=== PATIENT | male | born 2000 | race Caucasian/White ===

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

== ENCOUNTER 2021-11-04 17:55 | Emergency (ER) | payer OTHER ==
--- OUTSIDE RECORDS SUMMARY | 2021-11-04 17:58 | XMS REPORT | Continuity of Care Document ---
:2000 Author Organization [facility] t Address [facility] [address] [place] [address] Care Team Providers Name Role Phone PCP, DOES NOT HAVE A Primary Care Physician Unavailable Samir Goldberg Attending Clinician Samir CHAVIS Attending Clinician Unavailable Samir CHAVIS Admitting Clinician Unavailable Payers Payer Name Policy Type Policy Number Effective Date Expiration Date S ource Advance Directives Directive Decision Effective Termination Comments Source Date Date Healthcare Agents on N/A Univ ersity FileNameRelationshipHealthcare [place] [facility] Agent Medical RelationshipCommunicationSfloating hospital for children Branch [employer] PageMotherPrimary healthcare [phone] (Mobile) [email or web address] PageStep ParentFirst alternate healthcare -[phone] (Mobile) Problems Condition Condition Condition Status Onset Resolution Last Treating Co mments Source Name Details Category Date Date Treatment Clinician Date No known No known Disease Unive rs active active ity of problems problems [facility] Allergies, Adverse Reactions, Alerts Allergy Allergy Status Severity Reaction(s) Onset Inactive Treating Comm ents Source Name Type Date Date Clinician Sulfa Propensi Active Unknown - Unive rs (Sulfona ty to See comments 1-25 it y of mide adverse 00:00: [place] Antibiot reaction 00 Medica l ics) s Branch SULFA Drug Active Unknown-Cmnt Univ ers (SULFONA Class 1-25 ity of MIDE 00:00: [place] ANTIBIOT 00 Medical ICS) Branch Social History Social Habit Start Date Stop Date Quantity Comments Source Sex Assigned At Uni versity [facility] Smoking Status Start Date Stop Date Source Unknown if ever smoked Universit y [facility] Medications Ordered Filled Start Stop Current Ordering Indication Dosage Frequency Signature Comments Components Source Medication Medication Date Date Medication? Clinician (SIG) Name Name ibuprofen 2020-0 2020- No 800mg 800 mg, Uni vers (IBU) 09-19 Oral, ity of tablet 800 06:15: 05:26 ONCE, 1 Ed as mg 00 :00 dose, Tue Medical 09/19/19 at [place] 0015, MARIYA NaCl 0.9% 0 2020- No 1000mL at 999 Uni vers (NS) bolus 09-19 mL/hr, ity of infusion 05:30: 06:00 1,000 mL, Ed as 1,000 mL 00 :00 IV Medical Infusion, [place] ONCE, 1 dose, [facility] 09/18/19 at 2330, MARIYA acetaminoph 2019- 2020- No 1000mg 1,000 mg, Univers en 09-19 Oral, ity of (TYLENOL) 05:00: 03:55 [place]CE[place] tablet [place] :[place] dose, [facility] Medical 1,000 mg 09/18/19 at [facility] h 2300, MARIYA iohexol 2019-0 2020- No 120mL 120 mL, Univ rs (OMNIPAQUE 09-19 Intravenou it y of 350 02:30: 02:15 s, ONCE, 1 [place] BULK-150 00 :00 dose, Mon Medica l mL) 09/18/19 at [place] injection 2030, 120 mL Routine proMETHazin 2019-0 2020- No 25mg 25 mg, IV Univers e 09-19 Piggyback, ity of (PHENERGAN) 02:15: 02:15 [place] 1 [place] 00 :00 dose, Mon Medica l NaCl 0.9% 09/18/19 at [facility] (NS) 50 mL 2014, 50 piggyback mL morpHINE 2019-0 2020- No 4mg 4 mg, Slow Un meaghan injection 4 09-19 IV Push, ity of mg 02:15: 01:29 ONCE, 1 [place] 00 :00 dose, Mon Medical 09/18/19 at Branch 2015, STAT NaCl 0.9% 2020-0 2020- No 2000mL at 999 Uni vers (NS) bolus 2-11 02-11 mL/hr, ity of infusion 01:00: 05:26 2,000 mL, Ed as 2,000 mL 00 :00 IV Medical Infusion, Branch ONCE, 1 dose, 09/18/19 at 1900, MARIYA ondansetron 2020-0 Yes [id number] 4mg Take 1 Univers 4 mg 2-11 tablet by ity of disintegrat 00:00: mouth [place] ing tablet 00 every 12 Medic al (twelve) Branch hours as needed for Nausea and Vomiting (N/V). dicyclomine 2020-0 Yes [id number] 10mg Take 1 Univers (BENTYL) 10 2-11 capsule by it y of mg capsule 00:00: mouth 4 [place] 00 (four) Medical times Branch daily as needed for Abdominal pain. lisdexamfet 2019-0 Yes 40mg Take 40 mg Univers amine 1-19 by mouth ity of (VYVANSE) 00:52: every [place] 40 mg 41 morning. Medical capsule Branch SERTraline 2019-0 Yes 100mg Take 100 Un meaghan (ZOLOFT) 1-19 mg by ity of 100 mg 00:18: mouth [place] tablet 17 daily. Medical Branch esomeprazol 2019-0 Yes 40mg Take 40 mg Univers e magnesium 1-19 by mouth ity of (NEXIUM 00:18: daily. [place] ORAL) 17 Medical Branch cyclobenzap 2019-0 Yes [id number] 5mg Take 1 Univers rine 5 mg 1-18 tablet by ity o f tablet 00:00: mouth 3 [place] 00 (three) Medical times Branch daily. traMADOL 2019-0 Yes [id number] 50mg Take 1 Un meaghan (ULTRAM) 50 1-18 tablet by ity of mg tablet 00:00: mouth [place] 00 every 6 Medical (six) Branch hours as needed for Pain (scale 4-6). benzonatate 2018-0 Yes 100mg Take 1 Uni vers 100 mg 4-06 capsule by ity of capsule 00:00: mouth 3 [place] 00 (three) Medical times Branch daily as needed for Cough. naproxen 2018-0 Yes 500mg Take 1 Univer s (NAPROSYN) 3-27 tablet by ity of 500 mg 00:00: mouth 2 [place] tablet 00 (two) Medical times Branch daily with meals. FLAGYL 250 2016- Yes 250mg Take 1 Univ ers mg tablet 1-08 tablet by ity o f 00:00: mouth [place] 00 every 8 Medical (eight) Branch hours. ibuprofen 2015-0 Yes 600mg Take 1 Tab U nivers (MOTRIN) 1-25 by mouth 3 ity o f 600 mg 00:00: (three) [place] tablet 00 times Medical daily with Branch meals. Vital Signs Vital Name Observation Time Observation Value Comments Source Systolic blood 2019-09-19 06:30:00 154 mm[Hg] Univer sity [facility] Diastolic blood 2019-09-19 06:30:00 69 mm[facility]Hg] [facility] Heart rate 2019-09-19 06:30:00 106 /min [facility] Body temperature 2019-09-19 06:00:00 37.5 [place] [facility] Oxygen saturation in 2019-09-19 06:00:00 96 /min [facility] Arterial blood by [facility] Pulse oximetry Branch Respiratory rate 2019-09-19 05:00:00 20 /min [facility] Body weight 2019-09-19 00:45:00 122.471 kg [facility] Procedures Procedure Date / Time Performing Clinician Source Performed ADC,CLC OR LCC ONLY - 2019-09-19 03:57:00 Everett Chavis [facility] INFLUENZA A & B DIRECT Medical B [place] ANTIGEN URINALYSIS 2019-09-19 03:36:00 Everett Chavis [facility] CT ABDOMEN PELVIS W 2019-09-19 02:17:36 Everett Chavis [facility] CONTRAST [facility] LACTIC ACID WHOLE BLOOD 2019-09-19 01:24:00 [facility] 2019-09-19 01:23:00 Everett Chavis [facility] COMP. METABOLIC PANEL 2019-09-19 01:23:00 Everett Chavis [facility] ([id number]) [facility] Center [facility] CBC WITH DIFFERENTIAL 2019-09-19 01:23:00 Everett Chavis [facility] NOTICE OF PRIVACY 2019-09-19 00:23:33 [facility] Branch CONSENT/REFUSAL FOR 2019-09-19 00:23:10 Doctor Unassigned, No [facility] Name [facility] Clinic Encounters Start End Encounter Admission Attending Care Care Encounter Source Date/Time Date/Time Type Type Clinicians Facility Department ID 2019-09-18 2019-09-19 Emergency Mcrae [place], [facility] [id number] Univers 18:48:11 01:08:00 Everett Olson [id number] [facility] [id number] [facility] [id number] Medi david 084 Branch 2019-09-18 2019-09-19 Emergency X PARTHA, [facility] ERT [id number] Univers 18:48:11 01:08:00 EVERETT christine [facility] Results Test Description Test Time Test Comments Results Result Comments Source ADC,CLC OR LCC ONLY - INFLUENZA A & B DIRECT ANTIGEN 2019-09 04:41:00 Test Item Value Reference Range Interpretation Comme nts Influenza A (test code = 31710-5) Negative Negative Influenza B (test code = 89485-7) Negative Negative Lab Interpretation (test code = 79073-5) Normal [facility] 04:17:00 Test Item Value Reference Range Interpretation Comments APPEARANCE (test code = Clear Clear 8258468959) COLOR (test code = Yellow Yellow 9251939215) PH (test code = 4.8-8.0 7363975432) SP GRAVITY (test code = 1.003-1.030 H 1896108565) GLU U QUAL (test code = Normal Normal 5360610050) BLOOD (test code = Negative Negative 8383407295) KETONES (test code = Negative Negative 2170958949) PROTEIN (test code = Negative Negative 2887-8) UROBILIN (test code = Normal Normal 8985690651) BILIRUBIN (test code = Negative Negative 4984030972) NITRITE (test code = Negative Negative 6494149857) LEUK MICHAEL (test code = Negative Negative 5372078348) RBC/HPF (test code = See_Comment [Autom ated message] 3355215455) The system Trud[employer] generated this result transmitted ref erence range: 0 - 3 HP F. The reference range was not used to int erpret this result as normal/abnormal . WBC/HPF (test code = <1 See_Comment [Autom ated message] 0943927315) The system [employer] generated this result transmitted ref erence range: 0 - 5 HP F. The reference range was not used to int erpret this result as normal/abnormal . BACTERIA (test code = Negative Negative 9194881993) Lab Interpretation (test Abnormal code = 80119-0) [facility] W [id number] 03:42:19 1. There are multiple scattered prominent mesenteric lymph nodes. This isnonspecific but may be related to mesenteric adenitis.2. Otherwise no acute findings RL: 4500 End of report ORDERING CLINICIAN: EVERETT CHAVIS TECHNIQUE: Multidetector helical scanning of the abdomen and pelvis wasperformed after the administration of IV contrast. Coronal and sagittalreformations were obtained. CT scan was performed according to the ALARA (as low as reasonablyachievable) principal. INDICATION:Abdominal pain COMPARISON:None DISCUSSION:There is noevidence of active colonic or small bowel inflammation orobstruction. ?The appendix is well- seen andis normal. There are multiple prominent mesenteric lymph nodes, this is nonspecificbut may representmesenteric adenitis. The lung bases are clear. The liver, adrenal glands, gallbladder, spleen,pancreas, kidneys and stomach are unremarkable in their CT appearance. The pelvic organs are unremarkable. There is no pelvic mass or free fluid. The abdominal and pelvic vasculature is normal. There are no acute or suspicious osseous abnormalities. ? [facility], Radiant Results Inft User - 09/18/2019 9:43 PM CSTORDERING CLINICIAN: EVERETT CHAVISTECHNIQUE: Multidetector helical scanning of the abdomen and pelvis wasperformed after the administration of IV contrast. Coronal and sagittalreformations were obtained.CT scan was performed according to the ALARA (as low as reasonablyachievable) principal.INDICATION:Abdominal painCOMPARISON:NoneDISCUSSION:There is no evidence of active colonic or small bowel inflammation orobstruction. The appendix is well-seen and is normal.There are multiple prominent mesentericlymph nodes, this is nonspecificbut may represent mesenteric adenitis.The lung bases are clear. The liver, adrenal glands, gallbladder, spleen,pancreas, kidneys and stomach are unremarkable in their CTappearance.The pelvic organs are unremarkable. There is no pelvic mass or free fluid.The abdominal and pelvic vasculature is normal.There are no acute or suspicious osseous abnormalities. IMPRESSION1.There are multiple scattered prominent mesenteric lymph nodes. This isnonspecific but may be relatedto mesenteric adenitis.2. Otherwise no acute findingsRL: 4500End [facility] 2019-09-19 02:32:00 Test Item Value Reference Range Interpretation Comments WBC (test code = See_Comment H [Automated 7690-2) message] The system which generated this result transmit yamileth reference range : 4.50 - 13.50 10*3/?L. The reference range was not used to interpret this result as normal/abnormal . RBC (test code = See_Comment H [Automated 789-8) message] The system which generated this result transmit yamileth reference range : 4.50 - 5.30 10*6/?L. The reference range was not used to interpret this result as normal/abnormal . HGB (test code = 15.2 g/dL 13-16 718-7) HCT (test code = 45.9 % 37-49 4544-3) MCV (test code = 84.2 fL 78-95 787-2) MCH (test code = 27.9 pg 26-32 785-6) MCHC (test code = 33.1 g/dL 32-36 786-4) RDW-SD (test code = 35.9 fL 38.5-49 L 95084-4) RDW-CV (test code = 11.9 % 11.5-14 788-0) PLT (test code = See_Comment [Automated 777-3) message] The system which generated this result transmit yamileth reference range : 133 - 320 10*3/ ?L. The reference range was not u sed to interpret th is result as normal/abnormal . MPV (test code = 11.4 fL 9.3-12.9 81424-6) NRBC/100 WBC (test See_Comment [Automat ed code = 0362038095) message] The system which generated this result transmit yamileth reference range : 0.0 - 10.0 /100 WBCs. The reference range was not used to interpret this result as normal/abnormal . NRBC x10^3 (test code <0.01 See_Comment [Auto mated = 7928424945) message] The system which generated this result transmit yamileth reference range : 10*3/?L. The reference range was not used to interpret this result as normal/abnormal . GRAN MAT (NEUT) % 91.8 % (test code = 770-8) IMM GRAN % (test code 0.40 % = 8655359646) LYMPH % (test code = 3.7 % 736-9) MONO % (test code = 3.8 % 5905-5) EOS % (test code = 0.1 % 713-8) BASO % (test code = 0.2 % 706-2) GRAN MAT x10^3(ANC) 15.25 10*3/uL 1.5-10.3 H (test code = 0132714856) IMM GRAN x10^3 (test 0.07 10*3/uL 0-0.06 H code = 1748871466) LYMPH x10^3 (test code 0.61 10*3/uL 0.7-7.4 L = 731-0) MONO x10^3 (test code 0.63 10*3/uL 0-0.5 H = 742-7) EOS x10^3 (test code = <0.03 0-0.4 711-2) BASO x10^3 (test code 0.04 10*3/uL 0-0.1 = 704-7) Lab Interpretation Abnormal (test code = 30522-9) [facility] ([id number])2019-09-19 01:59:00 Test Item Value Reference Range Interpretation Comments NA (test code = 139 mmol/L 135-145 9906496762) K (test code = 4.1 mmol/L 3.5-5 6550313262) CL (test code = 102 mmol/L 98-108 1459919239) CO2 TOTAL (test code = 25 mmol/L 23-31 1420082442) AGAP (test code = 2-16 8640504879) BUN (test code = 13 mg/dL 7-23 9018862691) GLUCOSE (test code = 101 mg/dL 70-110 6836137921) CREATININE (test code = 0.99 mg/dL 0.6-1.25 4783073410) TOTAL BILI (test code = 0.6 mg/dL 0.1-1.3 6372268797) CALCIUM (test code = 9.9 mg/dL 8.6-10.6 3737000560) T PROTEIN (test code = 8.3 g/dL 6.3-8.2 H 9206277464) ALBUMIN (test code = 5.0 g/dL 3.5-5 0234153679) ALK PHOS (test code = 93 U/L 34-122 9076995175) ALTv (test code = 28 U/L 5-50 2-6) AST(SGOT) (test code = 31 U/L 13-40 3640045701) eGFR Calculation mL/min/1.73m2 (Non-) (test code = 5400635306) eGFR Calculation mL/min/1.73m2 () (test code = 6297167575) GUTIERREZ (test code = GUTIERREZ) Association of Glomerular Filtration Rate (GFR) and Staging of Kidney Disease* + --+ --+ ------+| GFR (mL/min/1.73 m2) ?| With Kidney Damage ?| ?Without Kidney Damage+ --------+ --------+ +| ?>90 ?| ?Stage one ?| ? Normal ?+ ---+ ---+ -------+| ?60-89 ?| ?Stage two ?| ? Decreased GFR ? + --+ --+ ------+| ?30-59 ?| ?Stage three ?| ? Stage three ? + --+ --+ ------+| ?15-29 ?| ?Stage four ? | ? Stage four ?+ ---+ ---+ -------+| ?<15 (or dialysis) ? ?| ?Stage five ? | ? Stage five ?+ ---+ ---+ -------+ *Each stage assumes the associated GFR level has been in effect for at least three months. ?Stages 1 to 5, with or without kidney disease, indicate chronic kidney disease. Notes: Determination of stages one and two (with eGFR >59mL/min/1.73 m2) requires estimation of kidney damage for at least three months as defined by structural or functional abnormalities of the kidney, manifested by either:Pathological abnormalities or Markers of kidney damage (including abnormalities in the composition of the blood or urine or abnormalities in imaging tests). Lab Interpretation Abnormal (test code = 32603-7) [facility] [id number] 01:59:00 Test Item Value Reference Range Interpretation Comments LIPASE (test code = 1500641222) 69 U/L 0-220 Lab Interpretation (test code = Normal 24001-9) [facility] NorthwestL[facility] Acid Whole [id number] 01:39:00 Test Item Value Reference Range Interpretation Comments LACTIC ACID (test code = 1.81 mmol/L 0.5-2.2 7966420618) Lab Interpretation (test code = Normal 75614-7) [facility]"
[2021-11-04 20:53] LABS: Absolute Lymphocytes (CBC) 1.4 K/uL (0.7-4.9); Lymphocytes % 11.2 % (15.3-44.8); MPV 8.8 fL (7.6-11.3); RBC Red Blood Cell Count 4.98 M/uL (4.33-5.43)
[2021-11-04] MEDS ORDERED: ONDANSETRON 4 MG/2 ML VIAL ONE (20:59)
[2021-11-04] MEDS ORDERED: FAMOTIDINE 20 MG/2 ML VIAL IV ONE (21:00)
[2021-11-04] MEDS ORDERED: NA CHLORIDE 0.9% 1,000 ML ONE (21:00)
[2021-11-04 21:10] LABS: Bilirubin Total 0.7 mg/dL (0.2-1.0); Potassium 3.7 mmol/L (3.5-5.1); Protein, Total 7.9 g/dL (6.4-8.2)
--- NOTE | 2021-11-04 21:13 | RAD REPORT ---
EXAM DESCRIPTION: CTAbdomen Pelvis W Contrast - 11/04/2021 9:01 pm CLINICAL HISTORY: Abdominal pain. ABD PAIN COMPARISON: Abdomen Exam Limited dated 11/04/2021 TECHNIQUE: Biphasic CT imaging of the abdomen and pelvis was performed with 100 ml non-ionic IV cont rast. All CT scans are performed using dose optimization technique as appropriate and may include automated exposure control or mA/KV adjustment according to patient size. FINDINGS: The lung bases are clear. The liver, spleen, pancreas, adrenal glands and kidneys are within normal limits. No bowel obstruction, free air, free fluid or abscess. The appendix is normal. No evidence of signi ficant lymphadenopathy. No suspicious bony findings. IMPRESSION: No acute intra-abdominal or pelvic finding.
--- NOTE | 2021-11-04 21:29 | RAD REPORT ---
EXAM DESCRIPTION: US - Abdomen Exam Limited - 11/04/2021 9:21 pm CLINICAL HISTORY: ABD PAIN COMPARISON: <Comparisons> FINDINGS: The gallbladder demonstrates no gallstones. No pericholecystic fluid or gallbladder wall t hickening. The common bile duct is normal measuring 4 mm. The liver demonstrates no findings of intrahepatic biliary dilatation. IMPRESSION: Unremarkable examination.
[2021-11-04 21:38] LABS: Urine Blood Negative (Negative); Urine Glucose Negative (Negative); Urine Protein Negative (Negative); Urine Specific Gravity 1.025 (1.005-1.030); Urine pH 6.5 (5.0-7.0)
--- NOTE | 2021-11-04 21:43 | ER ---
Nurse's Notes [facility] Name: Jay Whiteside Age: 21 yrs Sex: Male : 2000 Arrival Date: 11/04/2021 Time: 17:55 Bed 14 Private MD: Diagnosis: Epigastric abdominal tenderness;Abdominal pain, unspecified;Elevated white blood cell count Presentation: 11/04 18:13 Chief complaint: Patient states: FEVER, NAUSEA AND VOMITING TODAY. SEEN AT CLINIC bp EARLIER, -COVID AND FLU. TMAX 100.6. Coronavirus screen: fever, nausea, vomiting. Client presents with at least one sign or symptom that may indicate coronavirus-19. Standard/surgical mask placed on the client. Ebola Screen: No symptoms or risks identified at this time. Initial Sepsis Screen: Does the patient meet any 2 criteria? HR > 90 bpm. No. Patient's initial sepsis screen is negative. Does the patient have a suspected source of infection? No. Patient's initial sepsis screen is negative. Risk Assessment: Do you want to hurt yourself or someone else? Patient reports no desire to harm self or others. Onset of symptoms was November 04, 2021. 18:13 Method Of Arrival: Ambulatory bp 18:13 Acuity: CIELO 3 bp Triage Assessment: 21:00 General: Appears uncomfortable, Behavior is calm, cooperative. Pain: Complains of pain ke1 in abdomen Pain does not radiate. GI: Abdomen is round non-distended, Bowel sounds present X 4 quads. : No deficits noted. Derm: No deficits noted. Historical: - Allergies: 18:15 Sulfa (Sulfonamide Antibiotics); bp - Home Meds: 18:15 None [Active]; bp - PMHx: 18:15 ADD/ADHD; Anxiety; Depression; bp - Immunization history:: Client reports having NOT received the Covid vaccine. - Social history:: Smoking status: Reported history of juuling and/or vaping. - Family history:: not pertinent. Screenin:02 Abuse screen: Denies threats or abuse. Nutritional screening: No deficits noted. ke1 Tuberculosis screening: No symptoms or risk factors identified. Fall Risk No fall in past 12 months (0 pts). No secondary diagnosis (0 pts). IV access (20 points). Ambulatory Aid- None/Bed Rest/Nurse Assist (0 pts). Gait- Normal/Bed Rest/Wheelchair (0 pts) Mental Status- Oriented to own ability (0 pts). Total Perrin Fall Scale indicates No Risk (0-24 pts). Assessment: 22:05 GI: Abd is soft Abdomen is tender to palpation X 4 quads. ke1 Vital Signs: 18:13 BP 121 / 81; Pulse 114; Resp 20; Temp 99; Pulse Ox 98% ; Weight 131.54 kg; Height 5 ft. bp 10 in. (177.80 cm); 22:09 BP 123 / 54; Pulse 95; Resp 18; Pulse Ox 97% on R/A; ke1 18:13 Body Mass Index 41.61 (131.54 kg, 177.80 cm) bp ED Course: 17:55 Patient arrived in ED. ds1 18:15 Triage completed. bp 18:15 Arm band placed on. bp 18:25 Saul Rivera DO is Attending Physician. ms3 19:41 Andreas Amador, RN is Primary Nurse. ke1 19:46 Attending Physician role handed off by Saul Rivera DO mague 19:46 Salomón Macario MD is Attending Physician. [facility] 21:00 Bed in low position. Call light in reach. ke1 21:00 Inserted saline lock: 22 gauge in left antecubital area, using aseptic technique. by keMelquiades brizuela. 21:02 CT Abd/Pelvis - IV Contrast Only In Process Unspecified. EDMS 21:23 Abdomen Limited US In Process Unspecified. EDMS 22:05 No provider procedures requiring assistance completed. ke1 22:18 IV discontinued. ke1 Administered Medications: 21:26 Drug: Pepcid (famotidine) 20 mg Route: IVP; Site: left antecubital; ke1 22:06 Follow up: Response: Marked relief of symptoms ke1 21:26 Drug: Zofran (Ondansetron) 4 mg Route: IVP; Site: left antecubital; ke1 22:06 Follow up: Response: Marked relief of symptoms ke1 21:30 Drug: NS 0.9% 1000 ml Route: IV; Rate: 1 bolus; Site: left antecubital; ke1 22:18 Follow up: IV Status: Completed infusion ke1 Outcome: 21:42 Discharge ordered by . [facility] 22:18 Discharged to home ambulatory, with family. ke1 22:18 Condition: good 22:18 Discharge instructions given to patient, family. 22:19 Patient left the ED. ke1 Signatures: Dispatcher [employer] Salomón Jones MD MD cha Sanford, Demi ds1 Chaparro López, RN RN Saul Muñoz DO DO ms3 Andreas Amador RN RN ke1
--- NOTE | 2021-11-04 21:43 | EDPHYS ---
Physician Documentation [facility] Name: Jay Whiteside Age: 21 yrs Sex: Male : 2000 Arrival Date: 11/04/2021 Time: 17:55 Bed 14 Private MD: ED Physician Salomón Macario HPI: 11/04 18:50 This 21 yrs old Male presents to ER via Ambulatory with complaints of Abdominal Pain. ms3 18:50 The patient presents with abdominal pain. Onset: The symptoms/episode began/occurred ms3 acutely, 8 hour(s) ago. The symptoms do not radiate. Associated signs and symptoms: none. The symptoms are described as achy. Modifying factors: The symptoms are alleviated by nothing. Severity of pain: At its worst the pain was moderate in the emergency department the pain is unchanged. 21-year-old male with past medical history of ADD, ADHD, anxiety, depression presents for abdominal pain in the right upper quadrant that began 8 hours prior to arrival. Patient states pain is a 3/10 described as being sharp. Patient denies alleviating or inciting factors. Patient endorses nausea, vomiting. Patient denies diarrhea.. 20:15 The patient has not experienced similar symptoms in the past. mague Historical: - Allergies: 18:15 Sulfa (Sulfonamide Antibiotics); bp - Home Meds: 18:15 None [Active]; bp - PMHx: 18:15 ADD/ADHD; Anxiety; Depression; bp - Immunization history:: Client reports having NOT received the Covid vaccine. - Social history:: Smoking status: Reported history of juuling and/or vaping. - Family history:: not pertinent. ROS: 18:50 ENT: Negative for injury, pain, and discharge, Neck: Negative for injury, pain, and ms3 swelling, Cardiovascular: Negative for chest pain, and palpitations. Respiratory: Negative for shortness of breath, cough, wheezing, and pleuritic chest pain, MS/Extremity: Negative for injury and deformity, Skin: Negative for injury, rash, and discoloration, Psych: Negative for depression, anxiety, suicide ideation, homicidal ideation, and hallucinations. 18:50 Abdomen/GI: Positive for abdominal pain, nausea and vomiting, Negative for diarrhea. Exam: 18:50 Constitutional: This is a well developed, well nourished patient who is awake, alert, ms3 and in no acute distress. Eyes: Pupils equal round and reactive to light, extra-ocular motions intact. Lids and lashes normal. Conjunctiva and sclera are non-icteric and not injected. Periorbital areas with no swelling, redness, or edema. Neck: Trachea midline, no cervical lymphadenopathy. Supple, full range of motion without nuchal rigidity, or vertebral point tenderness. No Meningismus. Chest/axilla: Normal chest wall appearance and motion. Nontender with no deformity. Cardiovascular: Regular rate and rhythm with a normal S1 and S2. No gallops, murmurs, or rubs. Normal PMI, no JVD. No pulse deficits. Respiratory: Lungs have equal breath sounds bilaterally, clear to auscultation and percussion. No rales, rhonchi or wheezes noted. No increased work of breathing, no retractions or nasal flaring. 18:50 Abdomen/GI: Inspection: abdomen appears normal, Bowel sounds: normal, Palpation: mild abdominal tenderness, in all quadrants. Vital Signs: 18:13 BP 121 / 81; Pulse 114; Resp 20; Temp 99; Pulse Ox 98% ; Weight 131.54 kg; Height 5 ft. bp 10 in. (177.80 cm); 22:09 BP 123 / 54; Pulse 95; Resp 18; Pulse Ox 97% on R/A; ke1 18:13 Body Mass Index 41.61 (131.54 kg, 177.80 cm) bp MDM: 18:50 Differential diagnosis: appendicitis, gastritis, non-specific abd pain. ms3 19:46 Patient medically screened. [facility] 20:15 Data reviewed: vital signs, nurses notes, lab test result(s), EKG, radiologic studies, [facility] CT scan, plain films. 11/04 20:14 Order name: CBC with Diff; Complete Time: 20:59 mague 11/04 20:14 Order name: CMP; Complete Time: 21:40 mague 11/04 20:14 Order name: Lipase; Complete Time: 21:40 mague 11/04 20:14 Order name: Abdomen Limited US; Complete Time: 21:40 mague 11/04 20:14 Order name: CT Abd/Pelvis - IV Contrast Only; Complete Time: 21:40 mague 11/04 21:39 Order name: Urine Dipstick-Ancillary; Complete Time: 21:40 EDMS 11/04 20:14 Order name: IV Saline Lock; Complete Time: 20:47 [facility] 11/04 20:14 Order name: Labs collected and sent; Complete Time: 20:47 [facility] 11/04 20:14 Order name: Urine Dipstick-Ancillary (obtain specimen); Complete Time: 21:39 [facility] Administered Medications: 21:26 Drug: Pepcid (famotidine) 20 mg Route: IVP; Site: left antecubital; ke1 22:06 Follow up: Response: Marked relief of symptoms ke1 21:26 Drug: Zofran (Ondansetron) 4 mg Route: IVP; Site: left antecubital; ke1 22:06 Follow up: Response: Marked relief of symptoms ke1 21:30 Drug: NS 0.9% 1000 ml Route: IV; Rate: 1 bolus; Site: left antecubital; ke1 22:18 Follow up: IV Status: Completed infusion ke1 Disposition Summary: 11/04/21 21:42 Discharge Ordered Location: Home [facility] Problem: new [facility] Symptoms: have improved [facility] Condition: Stable [facility] Diagnosis - Epigastric abdominal tenderness mague - Abdominal pain, unspecified mague - Elevated white blood cell count [facility] Followup: mague - With: Private Physician - When: 2 - 3 days - Reason: Recheck today's complaints, Continuance of care, Re-evaluation by your physician Discharge Instructions: - Discharge Summary Sheet mague - Abdominal Pain, Adult mague - Nausea and Vomiting, Adult mague - Obesity, Adult mague - Nausea and Vomiting, Adult, [id number] mague - Abdominal Pain, Adult, [id number] mague - Obesity, Adult, [id number] [facility] Forms: - Medication Reconciliation Form [facility] - Thank You Letter [facility] - Antibiotic Education [facility] - Prescription Opioid Use [facility] Prescriptions: - Pepcid 20 mg Oral Tablet - take 1 tablet by ORAL route every 12 hours for 15 days; 30 tablet; Refills: 0, [facility] Product Selection Permitted - Zofran 4 mg Oral Tablet - take 1 tablet by ORAL route every 12 hours As needed; 20 tablet; Refills: 0, [facility] Product Selection Permitted - dicyclomine 20 mg Oral Tablet - take 1 tablet by ORAL route 4 times per day; 28 tablet; Refills: 0, Product [facility] Selection Permitted Signatures: Dispatcher [employer] Salomón Jones MD MD cha Peltier, Brian, RN RN Saul Muñoz DO DO ms3 Andreas Amador, RN RN ke1
[2021-11-04 23:19] VITALS: TEMP 99
[2021-11-04 23:23] VITALS: BP 123/54; O2SAT 97
== END 2021-11-04 22:19 | disposition home or self-care (01) ==
LOC: ER 17:55
DX: R10.816 Epigastric abdominal tenderness (principal); D72.829 Elevated white blood cell count, unspecified; R11.2 Nausea with vomiting, unspecified; Z88.2 Allergy status to sulfonamides
CPT/HCPCS: 96361; 85025; 36415; 82565; 81003; 83690; 80053; 74177; 76705; 96375; 96374; 99283; Q9967; J7030; J2405